=== PATIENT | female | born 1950 | race Caucasian/White ===

== ENCOUNTER 2018-05-23 13:25 | Emergency (ER) | payer MEDICARE, OTHER ==
[~2018-05-23] VITALS: Ht 165.1 cm; Wt 43.1 kg
[~2018-05-23 13:25] MED LIST: ACET325T9 PO; ALPR0.5T PO; ASPI-612 PO; CALC600T4 PO; CARV25TA PO; CHOL5000 PO; CRESTOR40 MG PO; CYAN10005 PO; DICL100G18 TP; FLUT16SP2 NS; IBUP-1007 PO; ISOS30TA PO; LIPITOR80 MG PO; LORA10CA PO; NITR0.4T22 SL; OMEG300C PO; OMEP40CA2 PO; SERT100T PO; ZOLP5TAB PO
[2018-05-23 13:51] VITALS: BP 107/56
[2018-05-23] MEDS ORDERED: HYDR-971 PO (14:03)
[2018-05-23] MEDS ORDERED: ONDA4TAB10 SL (14:03)
[2018-05-23] MEDS ORDERED: AMOX875T PO (14:03)
--- NOTE | 2018-05-23 14:04 | PHYS DOC ---
Past Medical History Past Medical History: Anxiety, CAD, Depression, ID, Other Additional Past Medical Histor: CARDIOMYOPATHY, HLD Past Surgical History: Pacemaker, Other Additional Past Surgical Histo: CARDIAC STENT, TRACH Alcohol Use: None Drug Use: None Adult General Chief Complaint Chief Complaint: DENTAL PROBLEM HPI HPI Patient is a 67 year old female with history of anxiety, CAD, depression, who presents today complaining of moderate left lower gum dental pain that began a couple days ago. Patient states she has history of ongoing chronic dental issues and is supposed to have all her teeth extracted and use dentures, she states she is afraid of extracting all her teeth. Patient denies any fever or trismus. Review of Systems Review of Systems Constitutional: Denies fever or chills [] Eyes: Denies change in visual acuity, redness, or eye pain [] HENT: Reports dental pain. Denies nasal congestion or sore throat [] Musculoskeletal: Denies back pain or joint pain [] Integument: Denies rash or skin lesions [] Neurologic: Denies headache, focal weakness or sensory changes [] All other systems were reviewed and found to be within normal limits, except as documented in this note. Allergies Allergies Allergies Coded Allergies Type Severity Reaction Last Updated Verified codeine Allergy Unknown 11/30/13 Yes Physical Exam Physical Exam Constitutional: Well developed, well nourished, no acute distress, non-toxic appearance. [] HENT: Normocephalic, atraumatic, bilateral external ears normal, oropharynx moist, no oral exudates, nose normal. [] Left lower cheek with 2 indurated areas consistent with a dental abscess. Patient is missing most of her teeth but the remaining front lower teeth are severely decayed. The gum appears erythematous, no fluctuance on the dental abscess. Abdomen: Bowel sounds normal, soft, no tenderness, no masses, no pulsatile masses. [] Skin: Warm, dry, no erythema, no rash. [] Back: No tenderness, no CVA tenderness. [] Extremities: No tenderness, no cyanosis, no clubbing, ROM intact, no edema. [] Neurologic: Alert and oriented X 3, normal motor function, normal sensory function, no focal deficits noted. [] Psychologic: Affect normal, judgement normal, mood normal. [] EKG EKG [] Radiology/Procedures Radiology/Procedures [] Course & Med Decision Making Course & Med Decision Making Pertinent Labs and Imaging studies reviewed. (See chart for details) Patient has dental abscess. D/C with amoxicillin, diclofenac and 10 tablets of B[place]. Follow-up with the dentist as soon as possible. Chris Disclaimer Geoon Disclaimer This electronic medical record was generated, in whole or in part, using a voice recognition dictation system. Departure Departure Impression: Primary Impression: Dentalgia Additional Impression: Dental abscess Disposition: HOME, SELF-CARE Condition: STABLE Referrals: ISAIAS LOVE (PCP) Follow-up with your dentist as soon as possible Patient Instructions: Dental Abscess Additional Instructions: You were evaluated in the emergency room for dental abscess. Ensure you complete your antibiotics. Follow-up with her dentist as soon as you can. Scripts Amoxicillin (AMOXICILLIN) 875 Mg Tablet 1 TAB PO BID, #20 TAB Prov: FIFI LI APRN 05/23/18 Ondansetron (ZOFRAN ODT) 4 Mg Tab.rapdis 1 TAB SL Q8HRS, #15 TAB Prov: FIFI LI APRN 05/23/18 Hydrocodone/Apap 5-325 (NORCO 5-325 TABLET) 1 Each Tablet 1 TAB PO Q6HRS, #10 TAB Prov: FIFI LI APRN 05/23/18 Problem Qualifiers FIFI LI APRN May 23, 2018 14:04
[2018-05-23] MEDS: ONDANSETRON ODT 4 MG TAB.RAPDIS. PO ONE (14:11)
[2018-05-23] MEDS: HYDROcodone/APAP 5/325MG 1 TAB TABLET PO ONE (14:11)
== END 2018-05-23 14:20 | disposition home or self-care (01) ==
LOC: ER 13:25
DX: K04.7 Periapical abscess without sinus (principal); I25.10 Atherosclerotic heart disease of native coronary artery without angina pectoris; I25.2 Old myocardial infarction; Z95.0 Presence of cardiac pacemaker; Z95.5 Presence of coronary angioplasty implant and graft; Z88.5 Allergy status to narcotic agent
CPT/HCPCS: 99284; Q0162